=== PATIENT | male | born 1975 ===

== ENCOUNTER 2018-02-10 22:21 | Inpatient (IN) | payer OTHER ==
--- NOTE | 2018-02-11 00:05 | C.PDOC ---
History Of Present Illness 42 y/o male with PMHx of high cholesterol, not on medication, presents to the ED with left-sided numbness x 16 hours. Patient states he woke up around 6:00am and around 8:00am suddenly began feeling tingling and numbness to the left side of face, arm, and leg. This is the last time well. Patient states symptoms waxed and waned in intensity but have been present constantly. States he had similar symptoms 3 days ago, which resolved after a few hours. He reports a mild pain to the left-sided neck, which radiates straight down to left-sided chest. Denies any motor weakness, vision changes, headache, trauma, or other associated sy mptoms. Patient works in construction. PMD: German Garcia Time Seen by Provider: 02/10/18 23:22 Chief Complaint (Nursing): Chest Pain History Per: Patient History/Exam Limitations: no limitations Onset/Duration Of Symptoms: Hrs (x16) Current Symptoms Are (Timing): Still Present Past Medical History Reviewed: Historical Data, Nursing Documentation, Vital Signs Vital Signs: Last Vital Signs Temp 98.8 F 02/10/18 22:39 Pulse 60 02/10/18 22:39 Resp 14 02/10/18 22:39 BP 120/78 02/10/18 22:39 Pulse Ox 98 02/10/18 22:39 - Medical History PMH: Hypercholesterolemia Surgical History: No Surg Hx Family History: States: No Known Family Hx - Social History Hx Alcohol Use: Yes Hx Substance Use: No - Immunization History Hx Tetanus Toxoid Vaccination: No Hx Influenza Vaccination: No Hx Pneumococcal Vaccination: No Review Of Systems Except As Marked, All Systems Reviewed And Found Negative. Constitutional: Negative for: Fever Eyes: Negative for: Vision Change Cardiovascular: Positive for: Chest Pain. Negative for: Palpitations, Light Headedness Respiratory: Negative for: Cough, Shortness of Breath Musculoskeletal: Positive for: Neck Pain (left-sided, radiates straight down to left chest) Neurological: Positive for: Numbness (to left face, arm, and leg). Negative for: Weakness, Incoordination, Change in Speech, Confusion, Altered Mental Status, Headache, Dizziness Physical Exam - Physical Exam Additional Physical Exam Comments: Constitutional: No acute distress. Head: Normocephalic. Atraumatic. Eyes: PERRL. ENT: Moist mucous membranes. Neck: Supple. No bruits. No pulsatile mass. Cardiovascular: Regular rate. Radial pulse 2+ bilaterally. Chest: No tenderness. Respiratory: Clear to auscultation bilaterally. GI: Soft. Nontender. Back: No CVA tenderness. Musculoskeletal: No tenderness or swelling of extremities. Skin: No rash. Neurologic: Orientedx3. No facial droop. Motor: 5/5 x 4. Sensation to light touch is decreased but present in left-sided face, arm, and leg. ED Course And Treatment - Laboratory Results Result Diagrams: 02/11/18 00:09 02/11/18 00:09 ECG: Interpreted By Me, Viewed By Me ECG Rhythm: Sinus Rhythm ECG Interpretation: No Acute Changes Interpretation Of ECG: No ST elevations Rate From EC (bpm) O2 Sat by Pulse Oximetry: 98 (RA) Pulse Ox Interpretation: Normal - CT Scan/US CT HEAD Other Rad Studies (CT/US): Read By Radiologist CT/US Interpretation: Name:MICHAEL CHOUDHURY Exam Date:Feb 11, 2018 12:08:38 AM EDT. Modality Type:CT\SR. Description:CT - BRAIN WITH CORONAL AND SAGITTAL MPRS. Gender:M Laterality:Not applicable. :73 Referring Physician:Floyd Gonzalez). EXAM: CT Head Without IV contrast. CLINICAL HISTORY: Stroke. TECHNIQUE: Axial computed tomography images of the head/brain without intravenous contrast. 1074 mGy-cm. COMPARISON: None provided. FINDINGS: BRAIN. No acute intraparenchymal hemorrhage. No mass lesion. No CT evidence for acute territorial infarct. No midline shift or extra-axial collections. VENTRICLES: No hydrocephalus. ORBITS: The orbits are unremarkable. SINUSES AND MASTOIDS: The paranasal sinuses and mastoid air cells are clear. BONES: No fracture. IMPRESSION: No acute intracranial abnormality. . Electronically signed on Feb 11, 2018 12:23:56 AM EDT by: Timmy Miles M.D., AGATHA Certified By ABR & CBCCT. Fellowship Trained MRI and CT Specialist NIHSS Stroke Scale - Date/Time Evaluation Performed Date Performed: 02/11/18 Time Performed: 00:00 - How Severe is the Stoke Level of Consciousness: 0=Alert LOC to Questions: 0=Both comments correct LOC to commands: 0=Obeys both correctly Best Gaze: 0=Normal Visual: 0=No visual loss Facial: 0=Normal Motor Arm - Left: 0=No drift Motor Arm - Right: 0=No drift Motor Leg - Left: 0=No drift Motor Leg - Right: 0=No drift Limb Ataxia: 0=Absent Sensory: 1=Mild to moderate loss Best Language: 0=No aphasia Dysarthia: 0=Normal articulation Extinction & Inattention (Neglect): 0=Normal, no object Score: 1 Severity Of Stroke: 1-4= Minor Stroke rTPA Inclusion/Exclusion - Refusal of Treatment Patient Refused Treatment: No - Inclusion Criteria for Altepase Patient is 18 years or Older: Yes The Clinical Diagnosis of Ischemic Stroke That is Causing a Potentially Dis abling Neurological Deficit: Yes Time of Onset is Well Established to be Less Than 270 Minute Before Treatment Would Begin: No Risk/Benefit Discussed With Patient/Family Member Present: Yes Medical Decision Making Medical Decision Making: Code Stroke activated. Patient is out of window for TPA. Plan: CT Head CTA Head/Neck EKG CMP Hb A1c Lipid panel Trop CBC CXR no acute disease. CT Head no bleed. CTA pending. Dr. Iglesias recommends ASA, Statin, and IVF. Dr. Arnold accepts patient to hospitalist service. Disposition - Disposition Disposition: HOSPITALIZED Disposition Time: 00:25 Condition: GUARDED Forms: [facility] (Slovak) - POA Core Measure Indicators: Code Stroke - Clinical Impression Clinical Impression: Hemiparesthesia - Scribe Statement The provider has reviewed the documentation as recorded by the Chica Dias Provider Attestation: All medical record entries made by the Chica were at my direction and personally dictated by me. I have reviewed the chart and agree that the record accurately reflects my personal performance of the history, physical exam, medical decision making, and the department course for this patient. I have also personally directed, reviewed, and agree with the discharge instructions and disposition.
[2018-02-11] MEDS ORDERED: Iodixanol 320 MG/ML 100 ML BOTTLE IV ONE (00:13)
[2018-02-11 00:19] LABS: BASO % 0.4 % (0.0-2.0); EOS # 0.3 K/uL (0.0-0.7); EOS % 4.9 % (0.0-4.0); HEMOGLOBIN 14.2 g/dL (12.0-18.0); LYMPH # 3.2 K/uL (1.0-4.3); LYMPH % 47.2 % (20.0-40.0); MEAN CELL VOLUME 86.9 fL (80.0-94.0); MEAN CORPUSCULAR HEMOGLOBIN 30.8 pg (27.0-31.0); MEAN CORPUSCULAR HGB CONC 35.4 g/dL (33.0-37.0); MEAN PLATELET VOLUME 10.9 fL (7.2-11.7); MONO # 0.6 K/uL (0.0-0.8); MONO % 9.3 % (0.0-10.0); NEUT # 2.6 K/uL (1.8-7.0); NEUT % 38.2 % (50.0-75.0); NRBC % 0.1 % (0.0-2.0); RBC 4.62 Mil/uL (4.40-5.90); RED CELL DISTRIBUTION WIDTH 13.2 % (11.5-14.5); WHITE BLOOD COUNT 6.9 K/uL (4.8-10.8)
[2018-02-11 00:22] LABS: INR 1.3; PROTHROMBIN TIME 13.9 SECONDS (9.7-12.2)
[2018-02-11 00:29] LABS: ALB/GLOB RATIO 1.4 (1.0-2.1); ALBUMIN 4.2 g/dL (3.5-5.0); ALT/SGPT 22 U/L (21-72); AST/SGOT 21 U/L (17-59); BLOOD UREA NITROGEN 18 mg/dL (9-20); CALCIUM 9.5 mg/dl (8.6-10.4); GFR NON-AFRICAN AMERICAN > 60; HDL CHOLESTEROL 26 mg/dL (30-70)
[2018-02-11] MEDS ORDERED: Sodium Chloride 0.9% 1,000 ML IV STA (00:29)
--- NOTE | 2018-02-11 00:29 | PCM.STROKE ---
Interval History Critical Care Time Spent (in minutes): 50 Interval History: 42 M PMH hyperlipidemia presented to ED with L sided chest pain that radiated up the neck and weakness on the L side. Pt reports intermittent symptoms over the past 3 days. He went to PMD today and was referred to ED. Pt denies loss of consciousness, numbness, tingling, difficulty speaking or swallowing. - Treatment Antiplatelet: Acetylsalicylic acid (ASA) Statin: Rosuvastatin - Education Written Stroke Education provided regarding: personal risk factors, stroke warning sign/symptoms, how to activate emergency medical services, need to follow up after discharge Hx Atrial Fibrillation: No Hx Atrial Flutter: No NIHSS Stroke Scale - Date/Time Evaluation Performed Date Performed: 02/11/18 Time Performed: 00:00 - How Severe is the Stroke Level of Consciousness: 0=Alert LOC to Questions: 0=Both comments correct LOC to commands: 0=Obeys both correctly Best Gaze: 0=Normal Visual: 0=No visual loss Facial: 0=Normal Motor Arm - Left: 0=No drift (but reports numbness) Motor Arm - Right: 0=No drift Motor Leg - Left: 0=No drift (but reports numbness) Motor Leg - Right: 0=No drift Limb Ataxia: 0=Absent Sensory: 0=Normal Best Language: 0=No aphasia Dysarthia: 0=Normal articulation Extinction & Inattention (Neglect): 0=Normal, no object Score: 0 Exam - Vital Sign Vital Signs: Temp Pulse Resp BP Pulse Ox 98.8 F 60 14 120/78 98 02/10/18 22:39 02/10/18 22:39 02/10/18 22:39 02/10/18 22:39 02/11/18 00:25 Constitutional: No distress, Normal appearing Ophthalmoscopic: absent: papilledema, hemorrhage Right Pupil: Reactive Left Pupil: Reactive Cardiovascular: Regular rate & rhythm. absent: Murmurs Mental Status: Normal: Memory, Attention, Language Cranial Nerve: Normal: Extraocular movement intact, Facial Sensation (decreased sensation on L side of face), Facial Strength, Palate/Tongue Movement, Shoulder Strength Neuro motor strength exam: Left Upper Extremity: 5, Right Upper Extremity: 5, Left Lower Extremity: 5, Right Lower Extremity: 5 Sensation: Propriception throughout Vascular Risk: Lipids - Data reviewed Laboratory results: 02/11/18 00:09 Assessment and Plan - Assessment and Plan (Free Text) Assessment: 42M PMH Hyperlipidemia presents to ED with L sided chest pain radiating to neck and mild L sided weakness, r/o stroke Plan: CT head CTA head/neck EKG: sinus jan troponins rosuvastatin 20 asa 325 lipid panel (cholesterol and TG high) hbA1C will f/u imaging and labs
[2018-02-11 00:52] LABS: LDL CHOLESTEROL 110 mg/dL (0-129)
[2018-02-11] MEDS ORDERED: Sodium Chloride 0.9% 1,000 ML ONE (01:08)
[2018-02-11] MEDS: Sodium Chloride 0.9% 1,000 ML IV SCH ×4 (01:09→20:15)
--- NOTE | 2018-02-11 01:13 | CP.PCM.HP ---
<ChelaXiomara - Last Filed: 02/11/18 01:08> History of Present Illness - History of Present Illness History of Present Illness: Xiomara York PGY1 H&P for Dr. Arnold Pt is a 42yo M with a PMH of HLD who presents to the ED with L sided chest pain. He reports this pain began on Saturday and subsided. The pain returned saturday morning which he describes as pressure-like and rates 6/10. He said it improved with exertion. He reports radiation to the neck and associated weakness in the L arm and neck. He also reported a weak sensation on the L side of his neck when drinking water but denied difficulty speaking, numbness or tingling. He denies a previous history of this. He went to his PMD, who referred him to the ED. He denied palpitations, sweating, dizziness, loss of consciousness, nausea, vomiting, abdominal pain, diarrhea, dysuria. In the ED, code stroke was called. Pt received ASA [address] head was ordered. 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 Allergies: NKDA Meds: none PMD: Jose Present on Admission - Present on Admission Any Indicators Present on Admission: No Review of Systems - Review of Systems Review of Systems: as per HPI Past Patient History - Past Social History Smoking Status: Light Smoker < 10 Cigarettes Daily - CARDIAC Hx Hypercholesterolemia: Yes - PSYCHIATRIC Hx Substance Use: No - SURGICAL HISTORY Hx Surgeries: No Meds Allergies/Adverse Reactions: Allergies Allergy/AdvReac Type Severity Reaction Status Date / Time No Known Allergies Allergy Unverified 02/10/18 22:42 Physical Exam - Constitutional Appears: Well, No Acute Distress - Head Exam Head Exam: ATRAUMATIC, NORMOCEPHALIC - Eye Exam Eye Exam: EOMI, Normal appearance, PERRL Pupil Exam: NORMAL ACCOMODATION - ENT Exam ENT Exam: Normal Exam - Neck Exam Neck exam: Positive for: Normal Inspection. Negative for: Tenderness - Respiratory Exam Respiratory Exam: Clear to Auscultation Bilateral, NORMAL BREATHING PATTERN. absent: Rales, Rhonchi, Wheezes - Cardiovascular Exam Cardiovascular Exam: REGULAR RHYTHM, +S1, +S2. absent: Gallop, Rubs, Systolic Murmur - GI/Abdominal Exam GI & Abdominal Exam: Normal Bowel Sounds, Soft. absent: Distended, Firm, Tenderness - Extremities Exam Extremities exam: Positive for: normal inspection. Negative for: pedal edema, tenderness - Neurological Exam Neurological exam: Alert, CN II-XII Intact, Normal Gait, Oriented x3, Reflexes Normal Additional comments: decreased sensation on L side of face - Expanded Neurological Exam Expanded Neuro motor strength exam: Left Upper Extremity: 5, Right Upper Extremity: 5, Left Lower Extremity: 5, Right Lower Extremity: 5 - Psychiatric Exam Psychiatric exam: Normal Affect, Normal Mood Results - Vital Signs Recent Vital Signs: Last Vital Signs Temp 98.8 F 02/10/18 22:39 Pulse 58 L 02/11/18 00:00 Resp 14 02/10/18 22:39 BP 120/78 02/10/18 22:39 Pulse Ox 98 02/11/18 00:54 - Labs Result Diagrams: 02/11/18 00:09 02/11/18 00:09 Labs: Laboratory Results - last 24 hr 02/11/18 02/11/18 02/11/18 00:09 00:09 00:09 WBC 6.9 RBC 4.62 Hgb 14.2 Hct 40.1 MCV 86.9 MCH 30.8 MCHC 35.4 RDW 13.2 Plt Count 135 MPV 10.9 Neut % (Auto) 38.2 L Lymph % (Auto) 47.[address] [place] % (Auto) 9.3 Eos % (Auto) 4.9 H Baso % (Auto) 0.4 Neut # (Auto) 2.6 Lymph # (Auto) 3.2 [place] # (Auto) 0.6 Eos # (Auto) 0.3 Baso # (Auto) 0.0 PT 13.9 H INR 1.3 APTT 32 Sodium 142 Potassium 4.0 Chloride 103 Carbon Dioxide 25 Anion Gap 18 BUN 18 Creatinine 1.1 Est GFR ( Amer) > 60 Est GFR (Non-Af Amer) > 60 POC Glucose (mg/dL) Random Glucose 90 Calcium 9.5 Total Bilirubin 0.4 AST 21 ALT 22 Alkaline Phosphatase 69 Troponin I < 0.0120 Total Protein 7.2 Albumin 4.2 Globulin 3.0 Albumin/Globulin Ratio 1.4 Triglycerides 418 H Cholesterol 206 H LDL Cholesterol Direct 110 HDL Cholesterol 26 L 02/11/18 00:25 WBC RBC Hgb Hct MCV MCH MCHC RDW Plt Count MPV Neut % (Auto) Lymph % (Auto) [place] % (Auto) Eos % (Auto) Baso % (Auto) Neut # (Auto) Lymph # (Auto) [place] # (Auto) Eos # (Auto) Baso # (Auto) PT INR APTT Sodium Potassium Chloride Carbon Dioxide Anion Gap BUN Creatinine Est GFR ( Amer) Est GFR (Non-Af Amer) POC Glucose (mg/dL) 98 Random Glucose Calcium Total Bilirubin AST ALT Alkaline Phosphatase Troponin I Total Protein Albumin Globulin Albumin/Globulin Ratio Triglycerides Cholesterol LDL Cholesterol Direct HDL Cholesterol Assessment & Plan - Assessment and Plan (Free Text) Assessment: 42yo M PMH HLD presents to ED with L sided chest pain and weakness, admitted for r/o stroke evaluation and treatment. Plan: r/o CVA - pt with L sided chest pain and weakness - CT head: f/u official reading - CTA head/neck ordered - MRI brain in AM, as per neuro - EKG: sinus jan - troponins: f/u series - ASA 325 given, as per neuro - rosuvastatin 20 daily, as per neuro - Neuro consulted, Dr. Iglesias - f/u further recs Chest Pain r/o ACS - EKG: sinus jan at 60 - pt hemodynamically stable - CXR - troponins: f/u series - ASA 325 given - continue to monitor HLD - Cholesterol: 418 - T - HDL: 26 - rosuvastatin 20 daily - HbA1c ordered PPX DVT: SCDs HHD, low cholesterol Case reviewed and plan discussed with Dr. Arnold <Carl Arnold - Last Filed: 02/11/18 06:29> Results - Vital Signs Recent Vital Signs: Last Vital Signs Temp 97.8 F 02/11/18 04:49 Pulse 48 L 02/11/18 04:49 Resp 20 02/11/18 04:49 BP 98/65 L 02/11/18 04:49 Pulse Ox 98 02/11/18 04:49 - Labs Result Diagrams: 02/11/18 00:09 02/11/18 00:09 Labs: Laboratory Results - last 24 hr 02/11/18 02/11/18 02/11/18 00:09 00:09 00:09 WBC 6.9 RBC 4.62 Hgb 14.2 Hct 40.1 MCV 86.9 MCH 30.8 MCHC 35.4 RDW 13.2 Plt Count 135 MPV 10.9 Neut % (Auto) 38.2 L Lymph % (Auto) 47.[address] [place] % (Auto) 9.3 Eos % (Auto) 4.9 H Baso % (Auto) 0.4 Neut # (Auto) 2.6 Lymph # (Auto) 3.2 [place] # (Auto) 0.6 Eos # (Auto) 0.3 Baso # (Auto) 0.0 PT 13.9 H INR 1.3 APTT 32 Sodium 142 Potassium 4.0 Chloride 103 Carbon Dioxide 25 Anion Gap 18 BUN 18 Creatinine 1.1 Est GFR ( Amer) > 60 Est GFR (Non-Af Amer) > 60 POC Glucose (mg/dL) Random Glucose 90 Hemoglobin A1c Calcium 9.5 Total Bilirubin 0.4 AST 21 ALT 22 Alkaline Phosphatase 69 Troponin I < 0.0120 Total Protein 7.2 Albumin 4.2 Globulin 3.0 Albumin/Globulin Ratio 1.4 Triglycerides 418 H Cholesterol 206 H LDL Cholesterol Direct 110 HDL Cholesterol 26 L Blood Type Antibody Screen 02/11/18 02/11/18 02/11/18 00:09 00:25 00:41 WBC RBC Hgb Hct MCV MCH MCHC RDW Plt Count MPV Neut % (Auto) Lymph % (Auto) [place] % (Auto) Eos % (Auto) Baso % (Auto) Neut # (Auto) Lymph # (Auto) [place] # (Auto) Eos # (Auto) Baso # (Auto) PT INR APTT Sodium Potassium Chloride Carbon Dioxide Anion Gap BUN Creatinine Est GFR ( Amer) Est GFR (Non-Af Amer) POC Glucose (mg/dL) 98 Random Glucose Hemoglobin A1c 5.2 Calcium Total Bilirubin AST ALT Alkaline Phosphatase Troponin I Total Protein Albumin Globulin Albumin/Globulin Ratio Triglycerides Cholesterol LDL Cholesterol Direct HDL Cholesterol Blood Type O POSITIVE Antibody Screen Negative Assessment & Plan - Date & Time Date: 02/11/18 (I have seen and examined the patient. I agree with the findings and plan of care as documented by Dr. York. Patient with chest pain and CVA. Code stroke called in ED. CT head negative as per ED physician. Follow up official read. Consult to neuro. MRI brain. Aspirin and Statin. ROMIx3 with EKG. Monitor for acute changes.) Time: 06:28 Attending/Attestation - Attestation I have personally seen and examined this patient.: Yes I have fully participated in the care of the patient.: Yes I have reviewed all pertinent clinical information: Yes
[2018-02-11 07:13] LABS: BASO % 0.5 % (0.0-2.0); EOS # 0.3 K/uL (0.0-0.7); EOS % 5.7 % (0.0-4.0); HEMOGLOBIN 14.2 g/dL (12.0-18.0); LYMPH # 2.8 K/uL (1.0-4.3); LYMPH % 47.4 % (20.0-40.0); MEAN CELL VOLUME 86.6 fL (80.0-94.0); MEAN CORPUSCULAR HEMOGLOBIN 30.6 pg (27.0-31.0); MEAN CORPUSCULAR HGB CONC 35.4 g/dL (33.0-37.0); MEAN PLATELET VOLUME 10.6 fL (7.2-11.7); MONO # 0.5 K/uL (0.0-0.8); MONO % 8.4 % (0.0-10.0); RBC 4.64 Mil/uL (4.40-5.90); RED CELL DISTRIBUTION WIDTH 12.8 % (11.5-14.5)
--- NOTE | 2018-02-11 07:54 | CT ---
Date of service: 02/11/2018 PROCEDURE: CT HEAD WITHOUT CONTRAST. HISTORY: Code stroke COMPARISON: None available. TECHNIQUE: Axial computed tomography images were obtained through the head/brain without intravenous contrast. Radiation dose: Total exam DLP = 1074 mGy-cm. This CT exam was performed using one or more of the following dose reduction techniques: Automated exposure control, adjustment of the mA and/or kV according to patient size, and/or use of iterative reconstruction technique. FINDINGS: HEMORRHAGE: No intracranial hemorrhage. BRAIN: No mass effect or edema. No atrophy or chronic microvascular ischemic changes. VENTRICLES: Unremarkable. No hydrocephalus. CALVARIUM: Unremarkable. PARANASAL SINUSES: Unremarkable as visualized. No significant inflammatory changes. MASTOID AIR CELLS: Unremarkable as visualized. No inflammatory changes. OTHER FINDINGS: None. IMPRESSION: No acute intracranial abnormality. If symptoms persists, consider correlation with MRI. These findings were preliminarily reported at 12:23 a.m. on 02/11/[address] Timmy Miles from [facility].
--- NOTE | 2018-02-11 08:48 | RAD ---
Date of service: 02/11/2018 HISTORY: Code Stroke COMPARISON: No prior. FINDINGS: LUNGS: No active pulmonary disease. PLEURA: No significant pleural effusion identified, no pneumothorax apparent. CARDIOVASCULAR: Normal. OSSEOUS STRUCTURES: No significant abnormalities. VISUALIZED UPPER ABDOMEN: Normal. OTHER FINDINGS: None. IMPRESSION: No active disease.
[2018-02-11 08:49] LABS: ALB/GLOB RATIO 1.3 (1.0-2.1); ALBUMIN 3.9 g/dL (3.5-5.0); ALT/SGPT 25 U/L (21-72); AST/SGOT 21 U/L (17-59); BLOOD UREA NITROGEN 15 mg/dL (9-20); CALCIUM 9.3 mg/dl (8.6-10.4); GFR NON-AFRICAN AMERICAN > 60
--- NOTE | 2018-02-11 12:40 | MRI ---
Date of service: 02/11/2018 PROCEDURE: MRI BRAIN WITHOUT CONTRAST HISTORY: pt with L sided weakness COMPARISON: None available. TECHNIQUE: Multiplanar, multisequence MR images of the brain were obtained without intravenous contrast enhancement. FINDINGS: HEMORRHAGE: None DWI: No evidence of an acute or early subacute infarction. BRAIN PARENCHYMA: Intrinsic signal throughout the garcia and white matter structures above below the tentorium appears within normal limits including the brainstem. There is no mass effect, parenchymal edema or loss of the corticomedullary differentiation. Midline brain anatomy appears within normal limits including the corpus callosum, brainstem and craniocervical junction. There is no suspicious extra-axial fluid collection identified. VENTRICLES: Unremarkable. No hydrocephalus. CRANIUM: Unremarkable. ORBITS: Grossly unremarkable. PARANASAL SINUSES/MASTOIDS: Mucosal inflammatory changes or mucoid material is seen in the periphery of the left maxillary sinus. VASCULAR SYSTEM: Skull base flow voids intact. OTHER FINDINGS: None. IMPRESSION: Unremarkable non contrast enhanced MRI of the brain.
--- NOTE | 2018-02-11 12:41 | CT ---
PROCEDURE: CTA HEAD AND NECK WITH CONTRAST HISTORY: L sided neck pain, L sided numbness COMPARISON: None available. TECHNIQUE: Initial noncontrast head CT was performed. Subsequently, CT angiogram of the head and neck were performed after the intravenous administration of 80 mL of Omnipaque 350. Contiguous 1.5mm thick images were obtained in the axial plane of the neck. 2-D coronal and sagittal MPR images were obtained. Imaging postprocessing was performed with 3-D images also obtained. A delayed contrast head CT was also obtained. This CT exam was performed using one or more of the following dose reduction techniques: Automated exposure control, adjustment of the mA and/or kV according to patient size, and/or use of iterative reconstruction technique. Contrast dose: 100 mL Visipaque Radiation dose: Total exam DLP = 538.96 mGy-cm. FINDINGS: HEAD: Right: There is mild asymmetric narrowing of the internal carotid and middle cerebral arteries. Anterior cerebral arteries are normal in caliber and widely patent. The right A1 segment is hypoplastic, an anatomic variant Left: The intracranial internal carotid artery, and anterior and middle cerebral arteries are widely patent. Posterior circulation: The visualized intracranial vertebral arteries, basilar artery and posterior cerebral arteries are widely patent. There is no endoluminal filling defect to suggest thrombus. There is no intracranial saccular aneurysm. NECK: There is a three vessel aortic arch. There is no stenosis at the origins of the great vessels at the level of the aortic arch. Right Carotid: On the right, the common carotid, internal carotid and external carotid arteries are widely patent. There is no hemodynamically significant stenosis in the internal carotid artery by NASCET criteria. Left Carotid: On the left, the common carotid, internal carotid and external carotid arteries are widely patent. There is no hemodynamically significant stenosis in the internal carotid artery by NASCET criteria. The vertebral arteries are widely patent. The vertebral arteries are codominant. The visualized soft tissues of the neck are normal. The visualized brain and cervical spine are within normal limits. The lung apices are clear. IMPRESSION: 1. Mild asymmetric narrowing of the right middle cerebral and internal carotid arteries which may be an anatomic variant however underlying etiologies such as vasculitis or atherosclerosis cannot be excluded. 2. No evidence of endoluminal thrombus or occlusion. 3. No evidence of hemodynamically significant stenosis in the internal carotid arteries. 4. Patent bilateral vertebral arteries.
--- NOTE | 2018-02-11 13:33 | CP.PCM.CON ---
<Tone Albert - Last Filed: 02/12/18 11:06> History of Present Illness - History of Present Illness History of Present Illness: PGY1 Neurology Consult Note for Dr. Iglesias: This is a 42-year-old Male who was referred to us by Dr. Arnold, and has a PMH of HLD who presents to [facility] for L-sided chest pain with associated L- sided weakness. Patient's and daughter are at bedside and with permission of the patient, history and physical exam was obtained. Per patient, he first fe lt chest pain on Saturday evening, but that it subsided and then came back yesterday, which prompted him to see his PMD, who subsequently sent the patient to the ED for evaluation. Patient described the chest pain as "pressure-like" and quantifies the pain at 6/10 at its worst. Patient noted that he also felt associated weakness in his L upper extremity that extended up to his L neck. Patient also vaguely reports a weak sensation on the L side of his neck when drinking water but denied difficulty speaking, numbness and/or tingling. Patient denies previous episodes of similar symptoms. ROS is otherwise unremarkable for shortness of breath, nausea, vomiting, diarrhea, syncope, dizziness, palpita tions, diaphoresis, loss of consciousness and/or dysuria. Of note, code stroke was called while patient was in the ED. Review of Systems - Review of Systems All systems: reviewed and no additional remarkable complaints except - Constitutional Constitutional: As Per HPI - EENT Eyes: As Per HPI Nose/Mouth/Throat: As Per HPI - Cardiovascular Cardiovascular: As Per HPI - Respiratory Respiratory: As Per HPI - Gastrointestinal Gastrointestinal: As Per HPI - Musculoskeletal Musculoskeletal: As Per HPI - Neurological Neurological: As Per HPI - Psychiatric Psychiatric: As Per HPI Past Patient History - Past Medical History & Family History Past Medical History?: Yes - Past Social History Smoking Status: Light Smoker < 10 Cigarettes Daily - CARDIAC Hx Hypercholesterolemia: Yes - MUSCULOSKELETAL/RHEUMATOLOGICAL Hx Falls: No - PSYCHIATRIC Hx Substance Use: No - SURGICAL HISTORY Hx Surgeries: No - ANESTHESIA Hx Anesthesia: No Hx Anesthesia Reactions: No Meds Allergies/Adverse Reactions: Allergies Allergy/AdvReac Type Severity Reaction Status Date / Time No Known Allergies Allergy Unverified 02/10/18 22:42 - Medications Medications: Current Medications Aspirin (Aspirin Chewable) 81 mg PO DAILY [facility] Last Admin: 02/11/18 10:12 Dose: 81 mg Sodium Chloride (Sodium Chloride 0.9%) 1,000 mls @ 100 mls/hr IV .Q10H [facility] Last Admin: 02/11/18 10:28 Dose: Not Given Nicotine (Nicoderm Cq) 1 patch TD DAILY [facility] Rosuvastatin Calcium (Crestor) 20 mg PO [facility] Physical Exam - Constitutional Appears: Non-toxic, No Acute Distress - Head Exam Head Exam: ATRAUMATIC, NORMAL INSPECTION, NORMOCEPHALIC - Eye Exam Eye Exam: EOMI, Normal appearance, PERRL Pupil Exam: NORMAL ACCOMODATION, PERRL - ENT Exam ENT Exam: Mucous Membranes Moist, Normal Exam - Neck Exam Neck exam: Positive for: Normal Inspection - Extremities Exam Extremities exam: Positive for: full ROM, normal inspection - Neurological Exam Neurological exam: Alert, CN II-XII Intact, Oriented x3, Reflexes Normal - Psychiatric Exam Psychiatric exam: Normal Affect, Normal Mood - Skin Skin Exam: Dry, Intact, Normal Color, Warm Results - Vital Signs Recent Vital Signs: Last Vital Signs Temp 97.5 F L 02/11/18 07:00 Pulse 59 L 02/11/18 07:55 Resp 20 02/11/18 07:00 BP 113/69 02/11/18 07:00 Pulse Ox 96 02/11/18 07:00 - Labs Result Diagrams: 02/12/18 07:15 02/12/18 07:15 Labs: Laboratory Results - last 24 hr 02/11/18 02/11/18 02/11/18 00:09 00:09 00:09 WBC 6.9 RBC 4.62 Hgb 14.2 Hct 40.1 MCV 86.9 MCH 30.8 MCHC 35.4 RDW 13.2 Plt Count 135 MPV 10.9 Neut % (Auto) 38.2 L Lymph % (Auto) 47.2 H Real % (Auto) 9.3 Eos % (Auto) 4.9 H Baso % (Auto) 0.4 Neut # (Auto) 2.6 Lymph # (Auto) 3.2 Real # (Auto) 0.6 Eos # (Auto) 0.3 Baso # (Auto) 0.0 PT 13.9 H INR 1.3 APTT 32 Sodium 142 Potassium 4.0 Chloride 103 Carbon Dioxide 25 Anion Gap 18 BUN 18 Creatinine 1.1 Est GFR ( Amer) > 60 Est GFR (Non-Af Amer) > 60 POC Glucose (mg/dL) Random Glucose 90 Hemoglobin A1c Calcium 9.5 Total Bilirubin 0.4 AST 21 ALT 22 Alkaline Phosphatase 69 Troponin I < 0.0120 Total Protein 7.2 Albumin 4.2 Globulin 3.0 Albumin/Globulin Ratio 1.4 Triglycerides 418 H Cholesterol 206 H LDL Cholesterol Direct 110 HDL Cholesterol 26 L Free T4 TSH 3rd Generation Blood Type Antibody Screen 02/11/18 02/11/18 02/11/18 00:09 00:25 00:41 WBC RBC Hgb Hct MCV MCH MCHC RDW Plt Count MPV Neut % (Auto) Lymph % (Auto) Real % (Auto) Eos % (Auto) Baso % (Auto) Neut # (Auto) Lymph # (Auto) Real # (Auto) Eos # (Auto) Baso # (Auto) PT INR APTT Sodium Potassium Chloride Carbon Dioxide Anion Gap BUN Creatinine Est GFR ( Amer) Est GFR (Non-Af Amer) POC Glucose (mg/dL) 98 Random Glucose Hemoglobin A1c 5.2 Calcium Total Bilirubin AST ALT Alkaline Phosphatase Troponin I Total Protein Albumin Globulin Albumin/Globulin Ratio Triglycerides Cholesterol LDL Cholesterol Direct HDL Cholesterol Free T4 TSH 3rd Generation Blood Type O POSITIVE Antibody Screen Negative 02/11/18 02/11/18 02/11/18 05:59 06:34 07:00 WBC 6.0 RBC 4.64 Hgb 14.2 Hct 40.1 MCV 86.6 MCH 30.6 MCHC 35.4 RDW 12.8 Plt Count 129 L MPV 10.6 Neut % (Auto) Lymph % (Auto) 47.4 H Real % (Auto) 8.4 Eos % (Auto) 5.7 H Baso % (Auto) 0.5 Neut # (Auto) Lymph # (Auto) 2.8 Real # (Auto) 0.5 Eos # (Auto) 0.3 Baso # (Auto) 0.0 PT INR APTT Sodium 140 Potassium 4.1 Chloride 104 Carbon Dioxide 24 Anion Gap 16 BUN 15 Creatinine 1.0 Est GFR ( Amer) > 60 Est GFR (Non-Af Amer) > 60 POC Glucose (mg/dL) 99 Random Glucose 97 Hemoglobin A1c Calcium 9.3 Total Bilirubin 0.5 AST 21 ALT 25 Alkaline Phosphatase 68 Troponin I < 0.0120 Total Protein 6.8 Albumin 3.9 Globulin 2.9 Albumin/Globulin Ratio 1.3 Triglycerides Cholesterol LDL Cholesterol Direct HDL Cholesterol Free T4 TSH 3rd Generation Blood Type Antibody Screen 02/11/18 02/11/18 11:38 11:38 WBC RBC Hgb Hct MCV MCH MCHC RDW Plt Count MPV Neut % (Auto) Lymph % (Auto) Real % (Auto) Eos % (Auto) Baso % (Auto) Neut # (Auto) Lymph # (Auto) Real # (Auto) Eos # (Auto) Baso # (Auto) PT INR APTT Sodium Potassium Chloride Carbon Dioxide Anion Gap BUN Creatinine Est GFR ( Amer) Est GFR (Non-Af Amer) POC Glucose (mg/dL) Random Glucose Hemoglobin A1c Calcium Total Bilirubin AST ALT Alkaline Phosphatase Troponin I Total Protein Albumin Globulin Albumin/Globulin Ratio Triglycerides Cholesterol LDL Cholesterol Direct HDL Cholesterol Free T4 0.80 TSH 3rd Generation 5.42 H Blood Type Antibody Screen Assessment & Plan - Assessment and Plan (Free Text) Assessment: This is a 42-year-old Male who was referred to us by Dr. Arnold, and has a PMH of HLD who presents to [facility] for L-sided chest pain with associated L- sided weakness. TIA - Patient is currently asymptomatic - CT head: no acute intracranial abnormality - CTA head/neck shows mild asymmetric narrowing of the right middle cerebral and internal carotid arteries which may be anatomic variant however underlying etiologies such as vasculitis or atherosclerosis cannot be excluded. No evidence of endoluminal thrombus or occlusion. No evidence of hemodynamically significant stenosis in the ICAs. Patent bilateral vertebral arteries. - MRI brain shows unremarkable non-contrast enhanced MRI of the brain. - EKG: sinus jan - Echocardiogram (02/12) shows LVEF is approximately 70%, aortic root is upper limit of normal, otherwise unremarkable. - Rosuvastatin 20 daily - ASA 81 mg PO daily - Start Plavix and continue dual antiplatelet therapy for 21 days. - Consulted Dr. Wells, interventional neurology to assess for need of cerebral angiogram to rule out vasculopathy (PA UNDER B[employer]ER and/or RCVS), rec appreciated. - 8 Panel UDS is negative Patient seen and case discussed in detail with Dr. Kelsie Albert PGY1 <Dudley Iglesias - Last Filed: 02/12/18 14:43> Meds - Medications Medications: Current Medications Aspirin (Aspirin Chewable) 81 mg PO DAILY [facility] Last Admin: 02/12/18 09:39 Dose: 81 mg Enoxaparin Sodium (Lovenox) 40 mg SC Q24H [facility] Last Admin: 02/12/18 12:23 Dose: 40 mg Sodium Chloride (Sodium Chloride 0.9%) 1,000 mls @ 100 mls/hr IV .Q10H [facility] Last Admin: 02/11/18 20:15 Dose: Not Given Influenza Virus Vaccine (Fluzone Quad [id number]) 60 mcg IM .ONCE ONE Stop: 02/14/18 10:01 Nicotine (Nicoderm Cq) 1 patch TD DAILY [facility] Last Admin: 02/12/18 12:08 Dose: Not Given Rosuvastatin Calcium (Crestor) 20 mg PO HS [facility] Last Admin: 02/11/18 21:26 Dose: 20 mg Results - Vital Signs Recent Vital Signs: Last Vital Signs Temp 97.8 F 02/12/18 07:00 Pulse 66 02/12/18 10:00 Resp 20 02/12/18 07:00 BP 103/66 02/12/18 07:00 Pulse Ox 98 02/12/18 07:00 - Labs Result Diagrams: 02/12/18 07:15 02/12/18 07:15 Labs: Laboratory Results - last 24 hr 02/11/18 02/11/18 02/11/18 16:24 18:17 20:58 WBC RBC Hgb Hct MCV MCH MCHC RDW Plt Count MPV Neut % (Auto) Lymph % (Auto) Real % (Auto) Eos % (Auto) Baso % (Auto) Neut # (Auto) Lymph # (Auto) Real # (Auto) Eos # (Auto) Baso # (Auto) Sodium Potassium Chloride Carbon Dioxide Anion Gap BUN Creatinine Est GFR ( Amer) Est GFR (Non-Af Amer) POC Glucose (mg/dL) 96 122 H Random Glucose Calcium Total Bilirubin AST ALT Alkaline Phosphatase Troponin I < 0.0120 Total Protein Albumin Globulin Albumin/Globulin Ratio Urine Opiates Screen Urine Methadone Screen Ur Barbiturates Screen Ur Phencyclidine Scrn Ur Amphetamines Screen U Benzodiazepines Scrn U Oth Cocaine Metabols U Cannabinoids Screen 02/11/18 02/12/18 02/12/18 22:33 06:25 07:15 WBC 6.1 RBC 4.74 Hgb 14.4 Hct 41.0 MCV 86.5 MCH 30.4 MCHC 35.2 RDW 12.8 Plt Count 138 MPV 10.2 Neut % (Auto) 46.6 L Lymph % (Auto) 38.9 Real % (Auto) 7.9 Eos % (Auto) 6.2 H Baso % (Auto) 0.4 Neut # (Auto) 2.8 Lymph # (Auto) 2.4 Real # (Auto) 0.5 Eos # (Auto) 0.4 Baso # (Auto) 0.0 Sodium Potassium Chloride Carbon Dioxide Anion Gap BUN Creatinine Est GFR ( Amer) Est GFR (Non-Af Amer) POC Glucose (mg/dL) 97 Random Glucose Calcium Total Bilirubin AST ALT Alkaline Phosphatase Troponin I Total Protein Albumin Globulin Albumin/Globulin Ratio Urine Opiates Screen Negative Urine Methadone Screen Negative Ur Barbiturates Screen Negative Ur Phencyclidine Scrn Negative Ur Amphetamines Screen Negative U Benzodiazepines Scrn Negative U Oth Cocaine Metabols Negative U Cannabinoids Screen Negative 02/12/18 02/12/18 07:15 11:09 WBC RBC Hgb Hct MCV MCH MCHC RDW Plt Count MPV Neut % (Auto) Lymph % (Auto) Real % (Auto) Eos % (Auto) Baso % (Auto) Neut # (Auto) Lymph # (Auto) Real # (Auto) Eos # (Auto) Baso # (Auto) Sodium 142 Potassium 4.2 Chloride 105 Carbon Dioxide 26 Anion Gap 15 BUN 12 Creatinine 0.9 Est GFR ( Amer) > 60 Est GFR (Non-Af Amer) > 60 POC Glucose (mg/dL) 95 Random Glucose 101 Calcium 9.1 Total Bilirubin 0.6 AST 18 ALT 21 Alkaline Phosphatase 66 Troponin I Total Protein 6.7 Albumin 3.8 Globulin 2.8 Albumin/Globulin Ratio 1.3 Urine Opiates Screen Urine Methadone Screen Ur Barbiturates Screen Ur Phencyclidine Scrn Ur Amphetamines Screen U Benzodiazepines Scrn U Oth Cocaine Metabols U Cannabinoids Screen Attending/Attestation - Attestation I have personally seen and examined this patient.: Yes I have fully participated in the care of the patient.: Yes I have reviewed all pertinent clinical information: Yes Notes (Text): 02/12/18 14:42 I agree with the assessment and plan. The patient should undergo further evaluation with diagnostic cerebral angiogram to determine the degree of stenosis of the right MCA and to evaluate for vasculopathy. We will contact the neurointerventional team for angiogram and continue the patient on dual antiplatelet therapy. Thank you for this consultation. 02/12/18 14:43
--- NOTE | 2018-02-11 22:28 | CP.PCM.PN ---
Subjective - Date & Time of Evaluation Date of Evaluation: 02/11/18 Time of Evaluation: 08:30 - Subjective Subjective: Vasiliy Fleming PGY-1, Medicine progress note Pt seen and examined at bedside. No acute events overnight. Pt remains bradycardic on tele monitor (50s, sometimes down to the high 40s). Pt has no complaints at this time. Pt denies fever, chills, headache, dizziness, lightheadedness, weakness, chest pain, sob, abdominal pain, n/v/d, paresthesias. Objective - Vital Signs/Intake and Output Vital Signs (last 24 hours): Temp Pulse Resp BP Pulse Ox 97.9 F 50 L 18 95/57 L 97 02/11/18 15:37 02/11/18 16:00 02/11/18 15:37 02/11/18 15:37 02/11/18 15:37 Intake and Output: 02/11/18 02/12/18 18:59 06:59 Intake Total 240 Balance 240 - Medications Medications: Current Medications Aspirin (Aspirin Chewable) 81 mg PO DAILY [facility] Last Admin: 02/11/18 10:12 Dose: 81 mg Sodium Chloride (Sodium Chloride 0.9%) 1,000 mls @ 100 mls/hr IV .Q10H [facility] Last Admin: 02/11/18 20:15 Dose: Not Given Nicotine (Nicoderm Cq) 1 patch TD DAILY [facility] Last Admin: 02/11/18 13:39 Dose: 1 patch Rosuvastatin Calcium (Crestor) 20 mg PO HS [facility] Last Admin: 02/11/18 21:26 Dose: 20 mg - Labs Labs: 02/11/18 06:34 02/11/18 07:00 PT 13.9 SECONDS (9.7-12.2) H 02/11/18 00:09 INR 1.3 02/11/18 00:09 APTT 32 SECONDS (21-34) 02/11/18 00:09 - Constitutional Appears: Non-toxic, No Acute Distress - Head Exam Head Exam: NORMAL INSPECTION, NORMOCEPHALIC - Eye Exam Eye Exam: EOMI, Normal appearance - ENT Exam ENT Exam: Mucous Membranes Moist - Neck Exam Neck Exam: Normal Inspection - Respiratory Exam Respiratory Exam: Clear to Ausculation Bilateral. absent: Rales, Rhonchi, Wheezes, Respiratory Distress - Cardiovascular Exam Cardiovascular Exam: Bradycardia, REGULAR RHYTHM, +S1, +S2 - GI/Abdominal Exam GI & Abdominal Exam: Soft, Normal Bowel Sounds. absent: Distended, Firm, Guarding, Rigid, Tenderness, Rebound - Extremities Exam Extremities Exam: Normal Capillary Refill, Normal Inspection. absent: Pedal Edema, Tenderness Additional comments: 3+ bilateral radial pulses; 3+ bilateral DP pulses - Back Exam Back Exam: NORMAL INSPECTION - Neurological Exam Neurological Exam: Alert, Awake, CN II-XII Intact, Oriented x3, Reflexes Normal Neuro motor strength exam: Left Upper Extremity: 5, Right Upper Extremity: 5, Left Lower Extremity: 5, Right Lower Extremity: 5 - Psychiatric Exam Psychiatric exam: Normal Affect, Normal Mood - Skin Skin Exam: Dry, Normal Color, Warm Assessment and Plan - Assessment and Plan (Free Text) Assessment: 42yo M PMH CADENCE presents to ED with L sided chest pain and weakness, admitted for r/o stroke evaluation and treatment. Plan: TIA - CT head: no acute intracranial abnormality - CTA head/neck shows mild asymmetric narrowing of the right middle cerebral and internal carotid arteries which may be anatomic variant however underlying etiologies such as vasculitis or atherosclerosis cannot be excluded. No evidence of endoluminal thrombus or occlusion. No evidence of hemodynamically significant stenosis in the ICAs. Patent bilateral vertebral arteries. - MRI brain shows unremarkable non=contrast enhanced MRI of the brain. - EKG: sinus jan - troponin x3 negative - rosuvastatin 20 daily, as per neuro - asa 81 mg PO daily - Neuro consulted, Dr. Iglesias, recs appreciated - f/u UDS - f/u echocardiogram Chest Pain r/o ACS - EKG: sinus jan at 60 - repeat EKG shows SB at 56 - pt hemodynamically stable - CXR shows no acute cardiopulmonary disease - troponinsx3 are normal - ASA 81 mg PO daily - continue to monitor Bradycardia - TSH is elevated at 5.42, Free t4 is 0.80 - f/u lyme disease EIA w/ reflex WB HLD - Cholesterol: 418 - T - HDL: 26 - rosuvastatin 20 daily - HbA1c ordered Tobacco use disorder - pt counseled on cessation and harmful effects of tobacco on the body; pt understands and states that he will try to cut down - nicoderm patch PPX DVT: SCDs. anticoagulation contraindicated due to thrmobocytopenia HHD, low cholesterol Case was reviewed and discussed with attending physician, Dr. Alannah Fleming PGY-1
[2018-02-11 22:54] LABS: BARBITURATES, UR NEGATIVE (NEGATIVE); BENZODIAZEPINES, UR NEGATIVE (NEGATIVE); OPIATES, UR NEGATIVE (NEGATIVE); PHENCYCLIDINE, UR NEGATIVE (NEGATIVE)
[2018-02-12 07:24] LABS: HEMOGLOBIN 14.4 g/dL (12.0-18.0); MEAN CELL VOLUME 86.5 fL (80.0-94.0); MEAN CORPUSCULAR HEMOGLOBIN 30.4 pg (27.0-31.0); MEAN CORPUSCULAR HGB CONC 35.2 g/dL (33.0-37.0); RBC 4.74 Mil/uL (4.40-5.90); RED CELL DISTRIBUTION WIDTH 12.8 % (11.5-14.5); WHITE BLOOD COUNT 6.1 K/uL (4.8-10.8)
[2018-02-12 07:25] LABS: BASO % 0.4 % (0.0-2.0); EOS # 0.4 K/uL (0.0-0.7); EOS % 6.2 % (0.0-4.0); LYMPH # 2.4 K/uL (1.0-4.3); LYMPH % 38.9 % (20.0-40.0); MEAN PLATELET VOLUME 10.2 fL (7.2-11.7); MONO # 0.5 K/uL (0.0-0.8); MONO % 7.9 % (0.0-10.0); NEUT # 2.8 K/uL (1.8-7.0); NEUT % 46.6 % (50.0-75.0); NRBC % 0.1 % (0.0-2.0)
[2018-02-12 07:38] LABS: ALB/GLOB RATIO 1.3 (1.0-2.1); ALBUMIN 3.8 g/dL (3.5-5.0); ALT/SGPT 21 U/L (21-72); AST/SGOT 18 U/L (17-59); BLOOD UREA NITROGEN 12 mg/dL (9-20); CALCIUM 9.1 mg/dl (8.6-10.4); GFR NON-AFRICAN AMERICAN > 60
--- NOTE | 2018-02-12 07:53 | CARD ---
APPROVED REPORT Date of service: 02/11/2018 EXAM: Two-dimensional and M-mode echocardiogram with Doppler and color Doppler. INDICATION CVA/TIA RISK FACTORS Hyperlipidemia 2D DIMENSIONS IVSd0.8 (0.7-1.1cm)LVDd5.2 (3.9-5.9cm) PWd0.7 (0.7-1.1cm)LA Uokdfo17 (18-58mL) LVDs3.8 (2.5-4.0cm)FS (%) 27.0 % LVEF (%)60.0 (>50%)LVEF (Arreola's)62 % IVC0.00 cm M-Mode DIMENSIONS RVDd1.69 (2.1-3.2cm)Left Atrium (MM)4.46 (2.5-4.0cm) IVSd0.60 (0.7-1.1cm)Aortic Root3.24 (2.2-3.7cm) LVDd6.29 (4.0-5.6cm)Aortic Cusp Exc.2.44 (1.5-2.0cm) PWd0.68 (0.7-1.1cm)FS (%) 37 % LVDs3.99 (2.0-3.8cm)TAPSE20.28 cm LVEF (%)65 (>50%) Mitral Valve MV E Usycngoa92.7cm/sMV A Ovdbanhi30.5cm/sE/A ratio1.4 LSKO557.16 cm/s TDI Lateral E' Peak V10.74cm/sMedial E' Peak V8.35cm/sE/Lateral E'8.1 E/Medial E'10.4 Tricuspid Valve TR Peak Kmezltkb667io/sTR Peak [id number] <Conclusion> Left ventricle: thickness: normal; size: normal; overall ejection fraction: 65%: diastolic filling pressures: normal Mitral valve: annulus: normal: leaflets: normal: excursion: normal; no significant trans-mitral gradient: no significant incompetence: left atrium: normal Aortic valve: leaflets: normal: excursion: normal; no significant trans-aortic gradient: No significant incompetence: aortic root:upper limit of normal Right sided Structures: Pulmonary valve: normal; no significant incompetence; Tricuspid valve: normal; no significant incompetence: Intra-cardiac hemodynamics: pulmonary systolic pressures: normal; central venous pressures: normal No pericardial effusion
--- NOTE | 2018-02-12 08:02 | CARD ---
APPROVED REPORT Date of service: 02/10/2018 EKG Measurement Heart [id number] <Conclusion> Sinus bradycardia Otherwise normal ECG
--- NOTE | 2018-02-12 10:39 | CP.PCM.PN ---
Subjective - Date & Time of Evaluation Date of Evaluation: 02/12/18 Time of Evaluation: 10:39 - Subjective Subjective: Vasiliy Fleming PGY-1, Medicine progress note Pt seen and examined at bedside. No acute events overnight. Pt remains bradycardic on tele monitor (50s, at times down to the high 40s). Pt has no complaints at this time. Pt denies fever, chills, headache, dizziness, lightheadedness, weakness, chest pain, sob, abdominal pain, n/v/d, paresthesias. Objective - Vital Signs/Intake and Output Vital Signs (last 24 hours): Temp Pulse Resp BP Pulse Ox 97.8 F 50 L 20 103/66 98 02/12/18 07:00 02/12/18 08:00 02/12/18 07:00 02/12/18 07:00 02/12/18 07:00 Intake and Output: 02/12/18 02/12/18 06:59 18:59 Intake Total 1000 Balance 1000 - Medications Medications: Current Medications Aspirin (Aspirin Chewable) 81 mg PO DAILY [facility] Last Admin: 02/12/18 09:39 Dose: 81 mg Sodium Chloride (Sodium Chloride 0.9%) 1,000 mls @ 100 mls/hr IV .Q10H [facility] Last Admin: 02/11/18 20:15 Dose: Not Given Influenza Virus Vaccine (Fluzone Quad [id number]) 60 mcg IM .ONCE ONE Stop: 02/14/18 10:01 Nicotine (Nicoderm Cq) 1 patch TD DAILY [facility] Last Admin: 02/11/18 13:39 Dose: 1 patch Rosuvastatin Calcium (Crestor) 20 mg PO HS [facility] Last Admin: 02/11/18 21:26 Dose: 20 mg - Labs Labs: 02/12/18 07:15 02/12/18 07:15 PT 13.9 SECONDS (9.7-12.2) H 02/11/18 00:09 INR 1.3 02/11/18 00:09 APTT 32 SECONDS (21-34) 02/11/18 00:09 - Constitutional Appears: Non-toxic, No Acute Distress - Head Exam Head Exam: ATRAUMATIC, NORMAL INSPECTION, NORMOCEPHALIC - Eye Exam Eye Exam: EOMI, Normal appearance, PERRL - ENT Exam ENT Exam: Mucous Membranes Moist - Respiratory Exam Respiratory Exam: Clear to Ausculation Bilateral. absent: Rales, Rhonchi, Wheezes, Respiratory Distress, Stridor - Cardiovascular Exam Cardiovascular Exam: Bradycardia, +S1, +S2 - GI/Abdominal Exam GI & Abdominal Exam: Soft, Normal Bowel Sounds. absent: Distended, Firm, Guarding, Rigid, Tenderness, Rebound - Extremities Exam Extremities Exam: Full ROM, Normal Capillary Refill, Normal Inspection. absent: Pedal Edema, Tenderness - Back Exam Back Exam: NORMAL INSPECTION - Neurological Exam Neurological Exam: Alert, CN II-XII Intact, Oriented x3 Neuro motor strength exam: Left Upper Extremity: 5, Right Upper Extremity: 5, Left Lower Extremity: 5, Right Lower Extremity: 5 - Psychiatric Exam Psychiatric exam: Normal Affect, Normal Mood - Skin Skin Exam: Dry, Normal Color, Warm Assessment and Plan - Assessment and Plan (Free Text) Assessment: 42yo M PMH CADENCE presents to ED with L sided chest pain and weakness, admitted for r/o stroke evaluation and treatment. Plan: TIA - pt currently asymptomatic - CT head: no acute intracranial abnormality - CTA head/neck shows mild asymmetric narrowing of the right middle cerebral and internal carotid arteries which may be anatomic variant however underlying etiologies such as vasculitis or atherosclerosis cannot be excluded. No evidence of endoluminal thrombus or occlusion. No evidence of hemodynamically significant stenosis in the ICAs. Patent bilateral vertebral arteries. - MRI brain shows unremarkable non-contrast enhanced MRI of the brain. - EKG: sinus jan - Echocardiogram (02/12) shows LVEF is approximately 70%, aortic root is upper limit of normal, otherwise unremarkable. - troponin x3 negative - rosuvastatin 20 daily, as per neuro - asa 81 mg PO daily - Neuro consulted, Dr. Iglesias, recs appreciated - Consulted Dr. Wells, interventional neurology to assess for need of cerebral angiogram to rule out vasculopathy (PA [employer] LOGGER and/or RCVS) - pt started on Plavix and continue dual antiplatelet therapy for 21 days. - 8 Panel UDS is negative Chest Pain r/o ACS - EKG: sinus jan at 49 - repeat EKG shows SB at 56 - pt hemodynamically stable - CXR shows no acute cardiopulmonary disease - troponinsx3 are normal - ASA 81 mg PO daily - continue to monitor Bradycardia - Pt remains bradycardic on tele monitor (50s, sometimes down to the high 40s). - TSH is elevated at 5.42, Free t4 is 0.80 - f/u lyme disease EIA w/ reflex WB HLD - Cholesterol: 418 - T - HDL: 26 - rosuvastatin 20 daily - HbA1c is 5.2 Tobacco use disorder - pt counseled on cessation and harmful effects of tobacco on the body; pt understands and states that he will try to cut down - nicoderm patch PPX DVT: SCDs. anticoagulation contraindicated due to thrombocytopenia HHD, low cholesterol Case was reviewed and discussed with attending physician, Dr. Alannah Fleming PGY-1
[2018-02-12] MEDS ORDERED: Enoxaparin 40 mg Syringe SC SCH (12:00)
--- NOTE | 2018-02-12 16:49 | CARD ---
APPROVED REPORT Date of service: 02/11/2018 EKG Measurement Heart [id number] <Conclusion> Sinus bradycardia Otherwise normal ECG
[2018-02-13 07:37] LABS: BASO % 0.5 % (0.0-2.0); EOS # 0.4 K/uL (0.0-0.7); EOS % 5.2 % (0.0-4.0); HEMOGLOBIN 15.1 g/dL (12.0-18.0); LYMPH # 2.7 K/uL (1.0-4.3); LYMPH % 38.7 % (20.0-40.0); MEAN CELL VOLUME 86.2 fL (80.0-94.0); MEAN CORPUSCULAR HEMOGLOBIN 30.6 pg (27.0-31.0); MEAN CORPUSCULAR HGB CONC 35.4 g/dL (33.0-37.0); MEAN PLATELET VOLUME 11.3 fL (7.2-11.7); MONO # 0.6 K/uL (0.0-0.8); MONO % 8.3 % (0.0-10.0); NEUT # 3.4 K/uL (1.8-7.0); NEUT % 47.3 % (50.0-75.0); NRBC % 0.2 % (0.0-2.0); RBC 4.96 Mil/uL (4.40-5.90); RED CELL DISTRIBUTION WIDTH 12.8 % (11.5-14.5); WHITE BLOOD COUNT 7.1 K/uL (4.8-10.8)
[2018-02-13 07:42] LABS: ALB/GLOB RATIO 1.4 (1.0-2.1); ALT/SGPT 21 U/L (21-72); AST/SGOT 19 U/L (17-59); BLOOD UREA NITROGEN 13 mg/dL (9-20); CALCIUM 9.2 mg/dl (8.6-10.4); GFR NON-AFRICAN AMERICAN > 60
[2018-02-13] MEDS: Sodium Chloride 0.9% 1,000 ML IV SCH (08:11)
--- NOTE | 2018-02-13 10:10 | CP.PCM.CON ---
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 This impeded his work and he went home. He started to feel better later in the day. He then had a second episode on the following Saturday went to his primary care doctor who told to go to the emergency room.He also describes some left chest pressure without radiation which comes and goes as well he describes a fair amount of stress at work. Is unsure whether this stress-related. The patient is a smoker and claims to smoke approximately 3 to 4 cigarettes a day for the last 15 years. He denies any other medical problems. On admission and workup had a CT and a CT angiogram followed by an MRI the MRI did not demonstrate any ischemic stroke changes however the CTA demonstrates some irregularity of the right middle cerebral artery and a possible aneurysm of the anterior communicating artery. Neurointerventional is been consulted for possible angiogram and further evaluation of these findings Review of Systems - Constitutional Constitutional: absent: As Per HPI, Anorexia, Chills, Daytime Sleepiness, Excessive Sweating, Fatigue, Fever, Frequent Falls, Headache, Increased Appetite, Lethargy, Malaise, Night Sweats, Snoring, Sleep Apnea, Weight Gain, Weight Loss, Weakness, Other - EENT Eyes: absent: As Per HPI, Blind Spots, Blurred Vision, Change in Vision, Decreased Night Vision, Diplopia, Discharge, Dry Eye, Exophthalmos, Floaters, Irritation, Itchy Eyes, Loss of Peripheral Vision, Pain, Photophobia, Requires Corrective Lenses, Sees Flashes, Spots in Vision, Tunnel Vision, Other Visual Disturbances, Loss of Vision, Other Nose/Mouth/Throat: absent: As Per HPI, Epistaxis, Nasal Congestion, Nasal Discharge, Nasal Obstruction, Nasal Trauma, Nose Pain, Post Nasal Drip, Sinus Pain, Sinus Pressure, Bleeding Gums, Change in Voice, Dental Pain, Dry Mouth, Dysphagia, Halitosis, Hoarsness, Lip Swelling, Mouth Lesions, Mouth Pain, Odynophagia, Sore Throat, Throat Swelling, Tongue Swelling, Facial Pain, Neck Pain, Neck Mass, Other - Cardiovascular Cardiovascular: Chest Pain with Activity, Claudication, Diaphoresis, Dyspnea, Dyspnea on Exertion, Edema, Irregular Heart Rhythm. absent: As Per HPI, Acrocyanosis, Chest Pain, Chest Pain at Rest, Pain Radiating to Arm/Neck/Jaw, Leg Edema, Leg Ulcers, Lightheadedness, Orthopnea, Palpitations, Paroxysmal Nocturnal Dyspnea, Pedal Edema, Radiating Pain, Rapid Heart Rate, Slow Heart R ate, Syncope, Other - Respiratory Respiratory: absent: As Per HPI, Cough, Dyspnea, Hemoptysis, Dyspnea on Exertion, Wheezing, Snoring, Stridor, Pain on Inspiration, Chest Congestion, Excessive Mucous Production, Change in Mucous Color, Pain with Coughing, Other - Musculoskeletal Musculoskeletal: Numbness, Stiffness - Neurological Neurological: As Per HPI - Hematologic/Lymphatic Hematologic: absent: As Per HPI, Easy Bleeding, Easy Bruising, Lymphadenopathy, Other Past Patient History - Past Medical History & Family History Past Medical History?: Yes - Past Social History Smoking Status: Light Smoker < 10 Cigarettes Daily - CARDIAC Hx Hypercholesterolemia: Yes - MUSCULOSKELETAL/RHEUMATOLOGICAL Hx Falls: No - PSYCHIATRIC Hx Substance Use: No - SURGICAL HISTORY Hx Surgeries: No - ANESTHESIA Hx Anesthesia: No Hx Anesthesia Reactions: No Meds Allergies/Adverse Reactions: Allergies Allergy/AdvReac Type Severity Reaction Status Date / Time No Known Allergies Allergy Unverified 02/10/18 22:42 - Medications Medications: Current Medications Aspirin (Aspirin Chewable) 81 mg PO DAILY [facility] Last Admin: 02/12/18 09:39 Dose: 81 mg Sodium Chloride (Sodium Chloride 0.9%) 1,000 mls @ 100 mls/hr IV .Q10H [facility] Last Admin: 02/13/18 08:11 Dose: 100 mls/hr Influenza Virus Vaccine (Fluzone Quad [id number]) 60 mcg IM .ONCE ONE Stop: 02/14/18 10:01 Nicotine (Nicoderm Cq) 1 patch TD DAILY [facility] Last Admin: 02/12/18 12:08 Dose: Not Given Rosuvastatin Calcium (Crestor) 20 mg PO HS [facility] Last Admin: 02/12/18 21:36 Dose: 20 mg Physical Exam - Constitutional Appears: Well, No Acute Distress - Head Exam Head Exam: ATRAUMATIC, NORMOCEPHALIC - Eye Exam Eye Exam: Normal appearance, PERRL Pupil Exam: NORMAL ACCOMODATION, PERRL - Neck Exam Neck exam: Positive for: Normal Inspection - Respiratory Exam Respiratory Exam: Clear to Auscultation Bilateral, NORMAL BREATHING PATTERN - Cardiovascular Exam Cardiovascular Exam: REGULAR RHYTHM - Rectal Exam Rectal Exam: Deferred - Expanded Neurological Exam Expanded Patient oriented to: person, place, time Cranial nerves: EOM's Intact: Normal, Facial Palsey w/Forehead Movement: Normal, Facial Sensation: Normal, Gag Reflex: Normal, Nystagmus: Normal Ataxia: No Cerebellar Function: Finger to Nose: Normal, Heel to Perera: Normal, Romberg: Normal Upper motor neuron: Babinski Sign: Normal, Pronator Drift: Normal, Sensory Extinction: Normal Sensory exam: Lower Extremity Light Touch: Normal, Upper Extremity Pin Prick: Normal Neuro motor strength exam: Left Upper Extremity: 5, Right Upper Extremity: 5, Left Lower Extremity: 5, Right Lower Extremity: 5 Results - Vital Signs Recent Vital Signs: Last Vital Signs Temp 97.5 F L 02/13/18 08:00 Pulse 55 L 02/13/18 08:00 Resp 20 02/13/18 08:00 BP 102/66 02/13/18 08:00 Pulse Ox 97 02/13/18 08:00 - Labs Result Diagrams: 02/13/18 07:05 02/13/18 07:05 Labs: Laboratory Results - last 24 hr 02/12/18 02/13/18 02/13/18 11:09 07:05 07:05 WBC 7.1 RBC 4.96 Hgb 15.1 Hct 42.7 MCV 86.2 MCH 30.6 MCHC 35.4 RDW 12.8 Plt Count 143 MPV 11.3 Neut % (Auto) 47.3 L Lymph % (Auto) 38.7 [place] % (Auto) 8.3 Eos % (Auto) 5.2 H Baso % (Auto) 0.5 Neut # (Auto) 3.4 Lymph # (Auto) 2.7 [place] # (Auto) 0.6 Eos # (Auto) 0.4 Baso # (Auto) 0.0 Sodium 142 Potassium 4.0 Chloride 104 Carbon Dioxide 26 Anion Gap 16 BUN 13 Creatinine 0.9 Est GFR ( Amer) > 60 Est GFR (Non-Af Amer) > 60 POC Glucose (mg/dL) 95 Random Glucose 95 Calcium 9.2 Total Bilirubin 0.6 AST 19 ALT 21 Alkaline Phosphatase 67 Total Protein 6.9 Albumin 4.0 Globulin 2.9 Albumin/Globulin Ratio 1.4 - Imaging and Cardiology CT scan - head Status: Image reviewed by me (normal ) Assessment & Plan (1) Unruptured cerebral aneurysm Assessment and Plan: Cerebral Angiogram to further evaluate risk and benefits of procedure discussed in detail with the patient and he agrees to proceed Status: Acute (2) Hemiparesthesia Assessment and Plan: Cerebral angiogram to evaluate the narrowing of the right mca in this symptomatic TIA patient Status: Acute
--- NOTE | 2018-02-13 11:34 | PCM.IRPREO ---
Pre Procedure Note - History Proposed Procedure: Diagnostic Cerebral Angiogram Pre-Op Diagnosis: Left ICA mca stroke - Previous Medical/Surgical History Cardiac: Other (Hyperlipidemia) Pulmonary: Smoking (3-4 cigarettes/day) Neuro: TIA/CVA, Other ((Nih Scale=0, PERRL, EOMI, Normal performance rapid alternating movements, precision finger tap, [id number], heel-peres, no drift)) Pain: 0. No Pain - Pre Procedure Were any radiologic studies performed in the last 12 months: Yes List of radiologic studies performed: CT and CT angiogram followed by an MRI on admisssion 02/11/18 Was medical management performed in the past 24 months: Not Applicable (none) Clinical indication for the procedure: Left facial, left arm and left leg numbness Have risks and benefits been explained to the patient: Yes Risks and benefits been explained to the patient: Informed consent was obtained for the procedure after discussing the potential risks and benefits of the procedure. Potential risk such as vascular injury, vascular occlusion, stroke, intracranial hemorrhage and even were discussed. After all the questions were answered patient gave the informed consent. Have alternatives to surgery explained to the patient as applicable: Yes - Allergies Allergies: NKDA No Known Allergies Allergy (Unverified 02/10/18 22:42) - Physical Exam Vital Signs: Vital Signs 02/13/18 02/13/18 04:00 08:00 Temperature 98.1 F 97.5 F L Pulse Rate 50 L 55 L Respiratory 20 20 Rate Blood Pressure 117/65 102/66 O2 Sat by Pulse 96 97 Oximetry Mental Status: Alert & Oriented x3 Neuro: WNL Heart: WNL Lungs: WNL - Specialist Directed Exam ENT: WNL - Date & Time Date: 02/13/18 Time: 11:54
[2018-02-13] MEDS ORDERED: Lidocaine 2% PF (10 ml) Amp ONE (11:48)
[2018-02-13] MEDS ORDERED: Midazolam 2 MG/2 ML VIAL ONE (12:08)
--- NOTE | 2018-02-13 12:10 | PCM.OP ---
<Elton Garcia - Last Filed: 02/13/18 12:54> Operative Report - Operative Report Pre-Operative Diagnosis: TIA possible Aneurysm Post-Operative Diagnosis: No evidence of aneurysm or vasculitis Operative Findings: See full report Procedure/Operation Description: Cerebral Angiogram 4 vessel Estimated Blood Loss: 0 Blood Replaced: none Complications: none Discharge & Condition: stable <Silvino Correa - Last Filed: 02/13/18 14:20> Operative Report - Operative Report Date of Surgery/Procedure: 02/13/18 Time of Surgery/Procedure: 12:05 Surgeon: Anesthesia/Sedation: MAC Indication for Surgery: TIA
[2018-02-13 14:55] VITALS: TEMP 98.1
--- NOTE | 2018-02-13 15:49 | CP.PCM.DIS ---
<Vasiliy Fleming - Last Filed: 02/13/18 20:30> Provider - Provider Date of Admission: 02/11/18 00:54 Attending physician: Hali Jaffe DO Time Spent in preparation of Discharge (in minutes): 35 Diagnosis - Discharge Diagnosis (1) Bradycardia Status: Acute (2) Dyslipidemia Status: Acute (3) Hemiparesthesia Status: Resolved (4) Unruptured cerebral aneurysm Status: Acute (5) TIA (transient ischemic attack) Status: Acute Hospital Course - Lab Results Lab Results: Most Recent Lab Values WBC 7.1 K/uL (4.8-10.8) 02/13/18 07:05 RBC 4.96 Mil/uL (4.40-5.90) 02/13/18 07:05 Hgb 15.1 g/dL (12.0-18.0) 02/13/18 07:05 Hct 42.7 % (35.0-51.0) 02/13/18 07:05 MCV 86.2 fL (80.0-94.0) 02/13/18 07:05 MCH 30.6 pg (27.0-31.0) 02/13/18 07:05 MCHC 35.4 g/dL (33.0-37.0) 02/13/18 07:05 RDW 12.8 % (11.5-14.5) 02/13/18 07:05 Plt Count 143 K/uL (130-400) 02/13/18 07:05 MPV 11.3 fL (7.2-11.7) 02/13/18 07:05 Neut % (Auto) 47.3 % (50.0-75.0) L 02/13/18 07:05 Lymph % (Auto) 38.7 % (20.0-40.0) 02/13/18 07:05 [place] % (Auto) 8.3 % (0.0-10.0) 02/13/18 07:05 Eos % (Auto) 5.2 % (0.0-4.0) H 02/13/18 07:05 Baso % (Auto) 0.5 % (0.0-2.0) 02/13/18 07:05 Neut # (Auto) 3.4 K/uL (1.8-7.0) 02/13/18 07:05 Lymph # (Auto) 2.7 K/uL (1.0-4.3) 02/13/18 07:05 [place] # (Auto) 0.6 K/uL (0.0-0.8) 02/13/18 07:05 Eos # (Auto) 0.4 K/uL (0.0-0.7) 02/13/18 07:05 Baso # (Auto) 0.0 K/uL (0.0-0.2) 02/13/18 07:05 PT 13.9 SECONDS (9.7-12.2) H 02/11/18 00:09 INR 1.3 02/11/18 00:09 APTT 32 SECONDS (21-34) 02/11/18 00:09 Sodium 142 mmol/L (132-148) 02/13/18 07:05 Potassium 4.0 mmol/L (3.6-5.2) 02/13/18 07:05 Chloride 104 mmol/L (98-107) 02/13/18 07:05 Carbon Dioxide 26 mmol/L (22-30) 02/13/18 07:05 Anion Gap 16 (10-20) 02/13/18 07:05 BUN 13 mg/dL (9-20) 02/13/18 07:05 Creatinine 0.9 mg/dL (0.8-1.5) 02/13/18 07:05 Est GFR ( Amer) > 60 02/13/18 07:05 Est GFR (Non-Af Amer) > 60 02/13/18 07:05 POC Glucose (mg/dL) 95 mg/dL (65-110) 02/13/18 07:01 Random Glucose 95 mg/dL (75-110) 02/13/18 07:05 Hemoglobin A1c 5.2 % (4.2-6.5) 02/11/18 00:09 Calcium 9.2 mg/dl (8.6-10.4) 02/13/18 07:05 Total Bilirubin 0.6 mg/dL (0.2-1.3) 02/13/18 07:05 AST 19 U/L (17-59) 02/13/18 07:05 ALT 21 U/L (21-72) 02/13/18 07:05 Alkaline Phosphatase 67 U/L (38-126) 02/13/18 07:05 Troponin I < 0.0120 ng/mL (0.00-0.120) 02/11/18 18:17 Total Protein 6.9 g/dL (6.3-8.3) 02/13/18 07:05 Albumin 4.0 g/dL (3.5-5.0) 02/13/18 07:05 Globulin 2.9 gm/dL (2.2-3.9) 02/13/18 07:05 Albumin/Globulin Ratio 1.4 (1.0-2.1) 02/13/18 07:05 Triglycerides 418 mg/dL (0-149) H 02/11/18 00:09 Cholesterol 206 mg/dL (0-199) H 02/11/18 00:09 LDL Cholesterol Direct 110 mg/dL (0-129) 02/11/18 00:09 HDL Cholesterol 26 mg/dL (30-70) L 02/11/18 00:09 Free T4 0.80 ng/dL (0.78-2.19) 02/11/18 11:38 TSH 3rd Generation 5.42 mIU/L (0.46-4.68) H 02/11/18 11:38 Urine Opiates Screen Negative (NEGATIVE) 02/11/18 22:33 Urine Methadone Screen Negative (NEGATIVE) 02/11/18 22:33 Ur Barbiturates Screen Negative (NEGATIVE) 02/11/18 22:33 Ur Phencyclidine Scrn Negative (NEGATIVE) 02/11/18 22:33 Ur Amphetamines Screen Negative (NEGATIVE) 02/11/18 22:33 U Benzodiazepines Scrn Negative (NEGATIVE) 02/11/18 22:33 U Oth Cocaine Metabols Negative (NEGATIVE) 02/11/18 22:33 U Cannabinoids Screen Negative (NEGATIVE) 02/11/18 22:33 Blood Type O POSITIVE 02/11/18 00:41 Antibody Screen Negative 02/11/18 00:41 - Hospital Course Hospital Course: On admission: Pt is a 42yo M with a PMH of HLD who presents to the ED with L sided chest pain. He reports this pain began on Saturday and subsided. The pain returned saturday morning which he describes as pressure-like and rates 6/10. He said it improved with exertion. He reports radiation to the neck and associated weakness in the L arm and neck. He also reported a weak sensation on the L side of his neck when drinking water but denied difficulty speaking, numbness or tingling. He denies a previous history of this. He went to his PMD, who referred him to the ED. He denied palpitations, sweating, dizziness, loss of consciousness, nausea, vomiting, abdominal pain, diarrhea, dysuria. In the ED, code stroke was called. Pt received ASA [address] head was ordered. Hospital course: CT head: no acute intracranial abnormality CTA head/neck shows mild asymmetric narrowing of the right middle cerebral and internal carotid arteries which may be anatomic variant however underlying etiologies such as vasculitis or atherosclerosis cannot be excluded. No evidence of endoluminal thrombus or occlusion. No evidence of hemodynamically significant stenosis in the ICAs. Patent bilateral vertebral arteries. MRI brain shows unremarkable non-contrast enhanced MRI of the brain. Pt's symptoms resolved within 24 hours. Pt noted to be bradycardic on the monitor for multiple days (fluctuated between high 40s to low 60s), asymptomatic. Troponins x3 were normal. TSH and Free T4 was normal. Dr. Iglesias, neurology, consulted and requested interventional radiology (Dr. Garcia) consult for findings on head/neck CTA. Cerebral arteriogram performed by Dr. Garcia which showed no evidence of aneursym or vasculitis Pt will be discharged on Aspirin. Pt noted to be have dyslipidemia with hypertriglyceridemia. Started on Crestor. This is a summary of the hospital course. Please see chart for full details. Discharge Exam - Head Exam Head Exam: ATRAUMATIC, NORMOCEPHALIC - Eye Exam Eye Exam: EOMI, Normal appearance, PERRL - ENT Exam ENT Exam: Mucous Membranes Moist - Neck Exam Neck exam: Normal Inspection - Respiratory Exam Respiratory Exam: Clear to PA & Lateral, NORMAL BREATHING PATTERN. absent: Decreased Breath Sounds, Rales, Rhonchi, Wheezes, Respiratory Distress, Stridor - Cardiovascular Exam Cardiovascular Exam: Bradycardia, +S1, +S2 - GI/Abdominal Exam GI & Abdominal Exam: Normal Bowel Sounds, Soft. absent: Distended, Firm, Guarding, Rebound, Rigid, Tenderness - Extremities Exam Extremities exam: full ROM, normal inspection, pedal pulses present - Back Exam Back exam: NORMAL INSPECTION - Neurological Exam Neurological exam: Alert, CN II-XII Intact, Oriented x3 - Psychiatric Exam Psychiatric exam: Normal Affect, Normal Mood - Skin Skin Exam: Dry, Normal Color, Warm Discharge Plan - Discharge Medications Prescriptions: RX: Aspirin [Aspirin Chewable] 81 mg PO DAILY #30 chew RX: Rosuvastatin Calcium [Crestor] 20 mg PO HS 30 Days #30 tab - Follow Up Plan Condition: GUARDED Disposition: HOME/ ROUTINE Instructions: Angiography, Stroke (DC), Quitting Smoking, High Cholesterol (DC) Additional Instructions: Patient is medically stable and safe for discharge home as per Dr. Hernandez. Patient should start taking Crestor 20 mg by mouth at night time, Aspirin 81 mg by mouth daily. Pt counseled on cessation of smoking and the negative effects on his health. Pt was counseled on cessation of alcohol use, and diet, and the negative effects on his health. Pt agrees to make changes. Patient should call to arrange follow up with Dr. Iglesias, Neurology, within 1 week of discharge. Patient should follow up with his his D, or [facility], within 2 weeks of discharge. Instructions explained to patient, who understands and agrees with discharge plan. Referrals: [facility] [Outside] Dudley Iglesias MD [Staff Provider] - <Jakob Hernandez - Last Filed: 02/24/18 16:41> Provider - Provider Date of Admission: 02/11/18 00:54 Attending physician: Hali Jaffe, Merged with [facility] Hospital Course - Lab Results Lab Results: Most Recent Lab Values WBC 7.1 K/uL (4.8-10.8) 02/13/18 07:05 RBC 4.96 Mil/uL (4.40-5.90) 02/13/18 07:05 Hgb 15.1 g/dL (12.0-18.0) 02/13/18 07:05 Hct 42.7 % (35.0-51.0) 02/13/18 07:05 MCV 86.2 fL (80.0-94.0) 02/13/18 07:05 MCH 30.6 pg (27.0-31.0) 02/13/18 07:05 MCHC 35.4 g/dL (33.0-37.0) 02/13/18 07:05 RDW 12.8 % (11.5-14.5) 02/13/18 07:05 Plt Count 143 K/uL (130-400) 02/13/18 07:05 MPV 11.3 fL (7.2-11.7) 02/13/18 07:05 Neut % (Auto) 47.3 % (50.0-75.0) L 02/13/18 07:05 Lymph % (Auto) 38.7 % (20.0-40.0) 02/13/18 07:05 [place] % (Auto) 8.3 % (0.0-10.0) 02/13/18 07:05 Eos % (Auto) 5.2 % (0.0-4.0) H 02/13/18 07:05 Baso % (Auto) 0.5 % (0.0-2.0) 02/13/18 07:05 Neut # (Auto) 3.4 K/uL (1.8-7.0) 02/13/18 07:05 Lymph # (Auto) 2.7 K/uL (1.0-4.3) 02/13/18 07:05 [place] # (Auto) 0.6 K/uL (0.0-0.8) 02/13/18 07:05 Eos # (Auto) 0.4 K/uL (0.0-0.7) 02/13/18 07:05 Baso # (Auto) 0.0 K/uL (0.0-0.2) 02/13/18 07:05 PT 13.9 SECONDS (9.7-12.2) H 02/11/18 00:09 INR 1.3 02/11/18 00:09 APTT 32 SECONDS (21-34) 02/11/18 00:09 Sodium 142 mmol/L (132-148) 02/13/18 07:05 Potassium 4.0 mmol/L (3.6-5.2) 02/13/18 07:05 Chloride 104 mmol/L (98-107) 02/13/18 07:05 Carbon Dioxide 26 mmol/L (22-30) 02/13/18 07:05 Anion Gap 16 (10-20) 02/13/18 07:05 BUN 13 mg/dL (9-20) 02/13/18 07:05 Creatinine 0.9 mg/dL (0.8-1.5) 02/13/18 07:05 Est GFR ( Amer) > 60 02/13/18 07:05 Est GFR (Non-Af Amer) > 60 02/13/18 07:05 POC Glucose (mg/dL) 95 mg/dL (65-110) 02/13/18 07:01 Random Glucose 95 mg/dL (75-110) 02/13/18 07:05 Hemoglobin A1c 5.2 % (4.2-6.5) 02/11/18 00:09 Calcium 9.2 mg/dl (8.6-10.4) 02/13/18 07:05 Total Bilirubin 0.6 mg/dL (0.2-1.3) 02/13/18 07:05 AST 19 U/L (17-59) 02/13/18 07:05 ALT 21 U/L (21-72) 02/13/18 07:05 Alkaline Phosphatase 67 U/L (38-126) 02/13/18 07:05 Troponin I < 0.0120 ng/mL (0.00-0.120) 02/11/18 18:17 Total Protein 6.9 g/dL (6.3-8.3) 02/13/18 07:05 Albumin 4.0 g/dL (3.5-5.0) 02/13/18 07:05 Globulin 2.9 gm/dL (2.2-3.9) 02/13/18 07:05 Albumin/Globulin Ratio 1.4 (1.0-2.1) 02/13/18 07:05 Triglycerides 418 mg/dL (0-149) H 02/11/18 00:09 Cholesterol 206 mg/dL (0-199) H 02/11/18 00:09 LDL Cholesterol Direct 110 mg/dL (0-129) 02/11/18 00:09 HDL Cholesterol 26 mg/dL (30-70) L 02/11/18 00:09 Free T4 0.80 ng/dL (0.78-2.19) 02/11/18 11:38 TSH 3rd Generation 5.42 mIU/L (0.46-4.68) H 02/11/18 11:38 Urine Opiates Screen Negative (NEGATIVE) 02/11/18 22:33 Urine Methadone Screen Negative (NEGATIVE) 02/11/18 22:33 Ur Barbiturates Screen Negative (NEGATIVE) 02/11/18 22:33 Ur Phencyclidine Scrn Negative (NEGATIVE) 02/11/18 22:33 Ur Amphetamines Screen Negative (NEGATIVE) 02/11/18 22:33 U Benzodiazepines Scrn Negative (NEGATIVE) 02/11/18 22:33 U Oth Cocaine Metabols Negative (NEGATIVE) 02/11/18 22:33 U Cannabinoids Screen Negative (NEGATIVE) 02/11/18 22:33 Lyme Disease IgM Ab Negative (NEGATIVE) 02/11/18 11:38 Blood Type O POSITIVE 02/11/18 00:41 Antibody Screen Negative 02/11/18 00:41 Attending/Attestation - Attestation I have personally seen and examined this patient.: Yes I have fully participated in the care of the patient.: Yes I have reviewed all pertinent clinical information, including history, physical exam and plan: Yes Notes (Text): TIA
[2018-02-13 15:59] VITALS: BP 119/75; RESP 20; O2SAT 96
[2018-02-13 20:45] VITALS: PULSE 50
[2018-02-14] MEDS ORDERED: Influenza Vaccine 60 MCG/0.5 ML SYR (3 yr & up) IM ONE (10:00)
--- NOTE | 2018-02-21 21:07 | PROCN ---
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 POSTOPERATIVE DIAGNOSIS: No evidence of stenosis. PROCEDURE: Cerebral angiogram. SURGEON: Elton Garcia MD ANESTHESIA: Monitored anesthesia care. CONSENT: Informed consent was obtained from the patient. After discussing the risks and benefits of the procedure, potential risks such as vascular injury, occlusions, further stroke or stroke-like symptoms, intracranial hemorrhage, and even were discussed. After I answered all of his questions, he gave informed consent for the procedure to be performed. INTRODUCTION: After the patient was placed under anesthesia and placed on the table in supine position, both groins were prepped and draped in the usual sterile fashion. A time-out procedure was documented, the patient's name, date of , and medical record number as well as the procedures to be performed was confirmed by the entire team. After everyone in the room agreed, the procedure continued. Using sterile Seldinger technique, the right common femoral artery was punctured using a micropuncture needle to aid over a 0.18 mm wire. A 5-[place] sheath was introduced into the artery and then hooked to a continuous heparinized flush system. Via the sheath, a 5-[place] catheter was introduced over a 0.035 Terumo Glidewire into the abdominal aorta. The catheter was then double flushed and subsequently hooked to a separate heparinized flush system. The following vessels were then subsequently selected and digital angiographic acquisitions were obtained. VESSELS SELECTED: The right common carotid artery was selected, cervical views were obtained. The right internal carotid artery was selected, intracranial views were obtained. The left common carotid artery was selected, cervical views were obtained. The left internal carotid artery was selected, intracranial views were obtained. High-definition magnified images of the intracranial vasculature were obtained. The left vertebral artery was selected and injected, cervical and intracranial views were obtained. The right vertebral artery was selected, cervical and intracranial views were obtained. DIAGNOSTIC IMAGING FINDINGS: Injection of the right common carotid artery demonstrates a normal appearance with the common internal and external carotid artery with no significant irregularity or stenosis. Injection of the right internal carotid artery with intracranial views demonstrates a normal appearance to the petrous, cavernous, and supraclinoid internal carotid artery. The right middle cerebral artery is well visualized and appears within normal limits. No evidence of stenosis is noted. There is a small A1 on the side. There is no visualization of an aneurysm. Injection of the left common carotid artery with cervical views demonstrates a normal appearance to the common carotid artery and its branches. Injection of the left internal carotid artery with intracranial views demonstrates a normal filling pattern to the internal carotid artery, supraclinoid internal carotid artery, and intracranial vasculature. Both anterior cerebral arteries are filling from this injection. There is some tortuosity at the bifurcation of the anterior communicating artery, but no evidence for aneurysm. High-definition magnification views were performed to evaluate for this. Again, no evidence for aneurysm. The middle cerebral artery and branches are within normal limits. No evidence for vasculitis or vasculopathy. Injection of the left vertebral artery with cervical views demonstrates a normal left vertebral artery and appears to be co-dominant without the right. There is good filling of the intracranial vasculature and visualization of the basilar. Injection of the right vertebral artery demonstrates no evidence of stenosis or irregularity. The intracranial views demonstrates normal basilar tip with good filling of the basilar artery as well as the posterior cerebral artery. There is even filling of a moderate-sized left posterior communicating artery. The patient tolerated the procedure well. Catheters were removed and compression held over the groin until hemostasis was obtained. IMPRESSION: Normal cerebral angiogram. No evidence for aneurysm or vasculitis or stenosis. If you have any questions regarding my patient, please do not hesitate to call me at [phone]. Elton Garcia MD
== END 2018-02-13 22:55 | disposition home or self-care (01) | DRG 47 ==
LOC: C.ER 22:21 → C.6T 02-11 00:54
PROVIDERS: ADMIT Hospitalist; ATTEND Hospitalist
PROC: B3181ZZ Fluoroscopy of Bilateral Internal Carotid Arteries using Low Osmolar Contrast (ICD-10-PCS; principal; 2018-02-13)
DX: G45.9 Transient cerebral ischemic attack, unspecified (principal); I67.1 Cerebral aneurysm, nonruptured; F17.210 Nicotine dependence, cigarettes, uncomplicated; E78.1 Pure hyperglyceridemia; E78.49 Other hyperlipidemia; E78.5 Hyperlipidemia, unspecified; Z79.82 Long term (current) use of aspirin; R00.1 Bradycardia, unspecified